=== PATIENT | male | born 1970 | race Two or more races ===

== ENCOUNTER 2018-11-27 22:25 | Emergency (ER) | payer OTHER ==
[2018-11-27 22:35] VITALS: BP 118/83
--- NOTE | 2018-11-27 23:18 | EDPHY ---
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 Patient works at a restaurant. Laceration is not over the ventral surface of the 2nd finger over the PIP joint. Full range of motion of the finger. No evidence of deep neurovascular injury or flexor tendon injury. Two-point discrimination intact. Sutures placed, wound care discussed, signs and symptoms reviewed. Use of textile bag sewer used for entire history, exam, and discharge planning DIFFERENTIAL DIAGNOSIS: includes but not limited to laceration of tendon or vascular structure, underlying fracture, laceration with retained FB ED PROCEDURES: Laceration Repair Verbal consent obtained by patient. Risks discussed, including but not limited to infection, pain, retained foreign body, need for additional repair, poor cosmetic result, tendon damage, nerve damage, poor wound healing, vascular damage. Alternatives to repair discussed. [place] protocol used to establish correct patient, procedure, equipment, desktop support manager, and site. Anesthesia obtained by local infiltration. Anesthetized with 1% lidocaine. Laceration location right 2nd digit, length 0.5 cm, depth 2 mm, Repair type simple. Patient was prepped and draped in usual sterile fashion. Hemostasis achieved with direct pressure. Wound explored through full range of motion and entire depth of wound probed and visualized with gloved finger. No suspicion for nerve damage, tendon damage, underlying fracture, vascular damage, foreign body, or contamination. Area was cleansed with Shur-Clens and irrigated with sterile saline as per protocol. No foreign body or material removed. Repair method 4 0 Prolene simple interrupted. To sutures placed. Well aligned, closely approximated. wound was dressed with bacitracin and Band-Aid. Patient tolerated well with no immediate complications. Wound care: Clean and dry x 24 hours, gently clean with soap and water, cover with topical antibiotic ointment/bandage. Suture/Staple removal: 7 Days CHIEF COMPLAINT: Laceration HPI: Pleasant Dutch-speaking only 48-year-old male presents the emergency department with a laceration to the right 2nd finger sustained while washing dishes at his job. Patient is right-hand dominant. He has full range of motion the finger, no reported numbness or loss of sensation. Tetanus is up-to- date. textile bag sewer used to obtain history PAST MEDICAL HISTORY: None reported Pertinent Past Surgical History: None reported Social History: Otherwise healthy, tetanus up-to-date REVIEW OF SYSTEMS: All other systems negative Constitutional: No fever, no chills Musculoskeletal: No deformity, no joint pain Skin: Laceration to right 2nd digit Neurological: No sensory loss or weakness, 2 point discrimination intact. PHYSICAL EXAM: General Appearance: Alert, oriented, appropriate for age, cooperative, NAD, well hydrated, non-toxic appearing, VSS, no hypoxia. Neurological: Alert and oriented x 3 Skin: 0.5 cm laceration to volar DIP joint of the 2nd digit on right-hand Musculoskeletal: Full range of motion of all fingers on the right hand, 2 point discrimination intact, no evidence of flexor tendon injury or foreign body MEDICAL DECISION MAKING: Patient was seen independently. Secondary supervising physician at time of evaluation was Dr Cuenca. Diagnosis: Right 2nd finger region. New, requires workup Summary: See assessment and plan for summary of ED visit Patient Progress improved. - History Smoking Status: Never smoked - Objective Vital Signs: Initial Vital Signs Temperature (C) 36.8 C 11/27/18 22:32 Heart Rate 77 11/27/18 22:32 Respiratory Rate 18 11/27/18 22:32 Blood Pressure 118/83 H 11/27/18 22:32 O2 Sat (%) 95 11/27/18 22:32 O2 Delivery Mode Room Air Allergies/Adverse Reactions: No Known Allergies Allergy (Unverified 11/27/18 22:31) Home Medications: Medication Instructions Recorded NK [No Known Home Meds] 11/27/18 Departure - Departure Disposition: Home, Routine, Self-Care Clinical Impression: Finger laceration Qualifiers: Encounter type: initial encounter Finger: index finger Damage to nail status: without damage Foreign body presence: without foreign body Laterality: right Qualified Code(s): S61.210A - Laceration without foreign body of right index finger without damage to nail, initial encounter Condition: Good Instructions: Laceration (ED) Additional Instructions: Please have sutures/tsering removed in 7 Days. You can return to the emergency department or your primary care for suture/staple removal. Avoid submerging sutures/tsering underwater for prolonged period of time until removed. Keep wound clean and dry, cover with antibiotic ointment and Band-Aid. Return to emergency department for redness, swelling, discharge, warmth to the skin, or any other concerns for infection. Por favor, retire las suturas / grapas en 7 [place]. Puede regresar al departamento de emergencias o a wiggins atencin primaria para la extraccin de suturas / grapas. Evite sumergir las suturas / grapas bajo el agua concepcion un perodo prolongado de tiempo hasta que se retiren. Mantenga la herida limpia y seca, cbrala con ungento antibitico y curita. Regrese al departamento de emergencias para detectar enrojecimiento, hinchazn, secrecin, calor en la piel o cualquier otra inquietud relacionada con ven[place] Referrals: NONE *PRIMARY CARE P,. [Primary Care Provider] - As per Instructions [facility],. [Clinic] - 5-7 days, if not improved
== END 2018-11-27 23:20 | disposition home or self-care (01) ==
PROC: 0HQFXZZ Repair Right Hand Skin, External Approach (ICD-10-PCS; principal; 2018-11-27)
DX: S61.210A Laceration without foreign body of right index finger without damage to nail, initial encounter (principal); W26.9XXA Contact with unspecified sharp object(s), initial encounter; Y92.511 Restaurant or cafe as the place of occurrence of the external cause; Y99.0 Civilian activity done for income or pay; Y93.G1 Activity, food preparation and clean up